=== PATIENT | female | born 1970 | race Caucasian/White ===

== ENCOUNTER 2024-02-22 09:59 | Emergency (ER) | payer BC, SELFPAY ==
[2024-02-22 10:02] VITALS: BP 144/94; PULSE 60; RESP 18; TEMP 36.6; O2SAT 97
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
--- NOTE | 2024-02-22 10:15 | DI.CT_ITS ---
Exam(s) CT CERVICAL SPINE WO EXAM: CT CERVICAL SPINE WO CLINICAL HISTORY: C 7 midline tenderness after fall w head strike. TECHNIQUE: Imaging Protocol: Axial computed tomography images with coronal and sagittal reformatted images were created and reviewed COMPARISON: No exams were available for comparison FINDINGS: Bones: There depression seen in the superior endplates at T1 and T2. There is a question of disrupti on of the cortex in each of these cases and acute fracture should be considered. There is no involve ment of the pedicles or posterior elements. There is no associated soft tissue abnormality. There i s mild reversal of the normal cervical lordosis. 2 mm anterolisthesis of C3 on C4 and C4 and C5 are noted. There is disc space narrowing at C5-C6 with osteophytes seen at the endplates. These finding s are likely chronic. Soft Tissues: Unremarkable. Lung Apices: Clear. IMPRESSION: Depressions involving the superior endplates of T1 and T2. There is a question of disruption of the cortex in each of these cases and an acute fracture should be considered. Noncontrast MRI is recomme nded for further evaluation. RADIATION DOSE DELIVERED: 332.24mGy.cm Total DLP 332.24mGy.cm Total DLP DATA REPOSITORY: All CT scans at this facility are submitted to the National Radiology Data Registry (NRDR) Dose Index Registry (DIR) with the [employer] (ACR). RADIATION OPTIMIZATION: All CT scans at this facility use at least one of these dose optimization te chniques: automated exposure control; mA and/or kV adjustment per patient size (includes targeted exa ms where dose is matched to clinical indication); or iterative reconstruction.
[2024-02-22 11:27] VITALS: BP 129/83; PULSE 55; O2SAT 99
[2024-02-22 13:24] VITALS: BP 125/77; PULSE 58; RESP 16; O2SAT 100
--- NOTE | 2024-02-22 13:45 | DI.MRI_ITS ---
Exam(s) MR THORACIC SPINE WO EXAM: MR THORACIC SPINE WO CLINICAL HISTORY: evaluate for fracture TECHNIQUE: Multiplanar multisequence MRI of the thoracic spine was performed without intravenous con trast. COMPARISON: CT CT CERVICAL SPINE WO from 02/22/2024 FINDINGS: OSSEOUS: There are Schmorl's node invagination in the superior endplate of T1, towards the anterior a spect and there is some marrow edema at this level as well as more posteriorly in the upper vertebra at this level where there is also mild height loss. There is no retropulsion of posterior cortex. T here is also small Schmorl's node invagination superior endplate of T2 vertebral body but without bon e edema on STIR images. No disc protrusion at this level. At the T3 level there is mild indentation of the superior endplate subjacent marrow edema consistent with mild compression fracture, proximally 10 percent. No significant posterior cortex retropulsion nor canal stenosis at this level. There is no acute signal in the vertebral bodies below this level although there is mild height loss at superior endplate of T9 noted and mild retropulsion of this sup erior posterior cortex, these findings consistent with remote fracture. SIGNIFICANT INDIVIDUAL LEVEL FINDINGS: There is a significant posterior disc herniation evident at C6-7 level. This subligamentous disc pro trusion extends posteriorly 3 mm and is approximately 12 mm wide. It effaces the anterior aspect of the thecal sac at this level and contacts the anterior aspect of the spinal cord. Resulting AP measu rement of the canal at this level is 8 mm. The disc protrusion at this level does not extend into th e exiting neural foramina which are patent. There is also no significant foraminal narrowing through out the thoracic spinal column. THORACIC SPINAL CORD: There is no abnormal signal in the cervical spinal cord and no evidence of foca l cord atrophy nor focal cord swelling. There is no evidence of syringomyelia nor significant spinal cord dysraphism. There is no evidence of mass at the conus medullaris. The position of the conus me dullaris is at normal T12-L1 level. There is no evidence of conus mass. PARASPINAL TISSUES: No significant masses nor fluid collections evident. IMPRESSION: 1. Mild superior endplate compression fractures at T1 and T3 levels with approximately 10 percent hei ght loss. There is no significant posterior cortex retropulsion at these levels 2. There is also some mild increased signal in the superior aspect of C7, without height loss of this vertebral body. This may be related to Modic type 1 sub endplate marrow edema changes as there is a significant central posterior subligamentous disc herniation at C6-7 level, as described above. 3. Other findings as above. If clinically indicated further cervical spine MRI can be performed. Findings called by myself to ER provider 02/22/2024 at 4:30 p.m. DATA REPOSITORY:
[2024-02-22 16:18] VITALS: BP 147/87; PULSE 67; RESP 18; O2SAT 97
--- NOTE | 2024-02-22 16:45 | W.EDPROG ---
Date of service: 02/22/24 Time of Service: 16:46 Medical Decision Making This dictation utilizes [id number] dictation software and may contain unedited grammatical errors. Patient seen in signout from Laisha Sánchez NP, pending MRI of the thoracic spine for some questionable T1 and T2 compression fractures seen on CT of the cervical spine from a fall 4 days ago, patient has been ambulating around his has pain, no signs of neurovascular compromise. Patients' medical history: States old back or neck fracture not sure which vertebrae. Family and social history: Noncontributory. Pertinent exam findings / vital signs include tenderness at the midline upper thoracic and lower cervical spine, neurovascular intact in bilateral upper extremities. Differential / pathologies of concern include compression fractures, disc herniation, unlikely cord syndrome. Diagnostic studies of: -MRI thoracic spine is pending-there shows a C6/7 disc herniation and a T1 and T3 minor compression fractures. Interventions of: -Given an [place] brace and referred to care management for [place] [facility] ED Course/Assessment/Plan: 54-year-old female presents with a fall 4 days ago on the ice, striking the back of her neck, has pain in this area, MRI reveals a 3 mm disc herniation without cord compression, shows a T1 and T3 minor less than 10% compression fracture, recommend the patient use the [place] brace for comfort as needed, Tylenol and ibuprofen as needed, ice to the areas of pain and follow-up with the referral to [facility] [place], strict return criteria for any signs of neurovascular compromise. Findings not consistent with surgical compression fractures, need for discectomy or emergent neurosurgery consult, neurovascular compromise. Disposition of herniation of intervertebral disc at C6-C7 level, compression of thoracic vertebra. Patient verbalized understanding of the plan and return to ED criteria and engaged in shared decision making. Medical Records Medical records reviewed: Yes I reviewed the patient's medical records. Imaging Data Radiologic Study: Attestation: I personally reviewed and interpreted this imaging study as follows: Imaging: CT Scan Radiologist's impression: EXAM: CT CERVICAL SPINE WO CLINICAL HISTORY: C 7 midline tenderness after fall w head strike. TECHNIQUE: Imaging Protocol: Axial computed tomography images with coronal and sagittal reformatted images were created and reviewed COMPARISON: No exams were available for comparison FINDINGS: Bones: There depression seen in the superior endplates at T1 and T2. There is a question of disruption of the cortex in each of these cases and acute fracture should be considered. There is no involvement of the pedicles or posterior elements. There is no associated soft tissue abnormality. There is mild reversal of the normal cervical lordosis. 2 mm anterolisthesis of C3 on C4 and C4 and C5 are noted. There is disc space narrowing at C5-C6 with osteophytes seen at the endplates. These findings are likely chronic. Soft Tissues: Unremarkable. Lung Apices: Clear. IMPRESSION: Depressions involving the superior endplates of T1 and T2. There is a question of disruption of the cortex in each of these cases and an acute fracture should be considered. Noncontrast MRI is recommended for further evaluation. Radiologic Study #2: Attestation: I personally reviewed and interpreted this imaging study as follows: Imaging: MRI Radiologist's impression: EXAM: MR THORACIC SPINE WO CLINICAL HISTORY: evaluate for fracture TECHNIQUE: Multiplanar multisequence MRI of the thoracic spine was performed without intravenous contrast. COMPARISON: CT CT CERVICAL SPINE WO from 02/22/2024 FINDINGS: OSSEOUS: There are Schmorl's node invagination in the superior endplate of T1, towards the anterior aspect and there is some marrow edema at this level as well as more posteriorly in the upper vertebra at this level where there is also mild height loss. There is no retropulsion of posterior cortex. There is also small Schmorl's node invagination superior endplate of T2 vertebral body but without bone edema on STIR images. No disc protrusion at this level. At the T3 level there is mild indentation of the superior endplate subjacent marrow edema consistent with mild compression fracture, proximally 10 percent. No significant posterior cortex retropulsion nor canal stenosis at this level. There is no acute signal in the vertebral bodies below this level although there is mild height loss at superior endplate of T9 noted and mild retropulsion of this superior posterior cortex, these findings consistent with remote fracture. SIGNIFICANT INDIVIDUAL LEVEL FINDINGS: There is a significant posterior disc herniation evident at C6-7 level. This subligamentous disc protrusion extends posteriorly 3 mm and is approximately 12 mm wide. It effaces the anterior aspect of the thecal sac at this level and contacts the anterior aspect of the spinal cord. Resulting AP measurement of the canal at this level is 8 mm. The disc protrusion at this level does not extend into the exiting neural foramina which are patent. There is also no significant foraminal narrowing throughout the thoracic spinal column. THORACIC SPINAL CORD: There is no abnormal signal in the cervical spinal cord and no evidence of focal cord atrophy nor focal cord swelling. There is no evidence of syringomyelia nor significant spinal cord dysraphism. There is no evidence of mass at the conus medullaris. The position of the conus medullaris is at normal T12-L1 level. There is no evidence of conus mass. PARASPINAL TISSUES: No significant masses nor fluid collections evident. IMPRESSION: 1. Mild superior endplate compression fractures at T1 and T3 levels with approximately 10 percent height loss. There is no significant posterior cortex retropulsion at these levels 2. There is also some mild increased signal in the superior aspect of C7, without height loss of this vertebral body. This may be related to Modic type 1 sub endplate marrow edema changes as there is a significant central posterior subligamentous disc herniation at C6-7 level, as described above. 3. Other findings as above. If clinically indicated further cervical spine MRI can be performed. Findings called by myself to ER provider 02/22/2024 at 4:30 p.m. Quality:[place] Health Related Social Needs: No Data to Display Discharge Plan Disposition Patient Disposition: Home Condition: Stable Discharge Details Clinical Impression: Compression fracture of thoracic vertebra, Herniation of intervertebral disc at C6-C7 level Primary Care Provider: Kalyn,Local ED Provider: Esteban Teajda Home Meds and New Rx's Prescriptions: No Action No Known Home Meds Discharge Instructions Instructions: Herniated disc, Vertebral Compression Fracture ED Additional Instructions: You were seen in the emergency department for the very minor compression fractures at T1 and T3 from your fall 4 days ago. He also have a significant disc herniation at C6/C7. You should [place] with [facility] [place] for long-term management of these injuries. We do not have orthospine at this hospital. I am sending you home with a soft cervical neck collar, you may need to seek specialty evaluation for continued pain, strict return criteria to emergency department for any signs of neurovascular compromise in the upper or lower extremities, numbness to the genitals, changes in bowel and stool habits. Discharge Data Discharge Date/Time-TO BE ENTERED AT DEPARTURE: 02/22/24 17:42
== END 2024-02-22 17:42 | disposition home or self-care (01) ==
PROVIDERS: Emergency Provider Physician Assistant
DX: S22.018A Other fracture of first thoracic vertebra, initial encounter for closed fracture (principal); S22.038A Other fracture of third thoracic vertebra, initial encounter for closed fracture; M50.223 Other cervical disc displacement at C6-C7 level; W19.XXXA Unspecified fall, initial encounter
CPT/HCPCS: 00123; 99284; 72125; 72146; 99283

== ENCOUNTER 2024-07-15 16:14 | Outpatient (REF) | payer BC, SELFPAY ==
[2024-07-15 21:50] LABS: Abs Immature Grans 0.02 10^3/uL (0.0-0.06); Absolute Basophil Count 0.02 10^3/uL (0.0-0.2); Absolute Eosinophil Count 0.07 10^3/uL (0.0-0.7); Absolute Lymphocyte Count 0.76 10^3/uL (1.2-3.4); Absolute Monocyte Count 0.41 10^3/uL (0.1-0.8); Absolute Neutrophil Count 3.38 10^3/uL (1.2-6.7); Basophils % 0.4 %; Eosinophils % 1.5 %; HCT 39.6 % (36.0-46.0); HGB 13.2 g/dL (11.2-15.7); Immature Grans % 0.4 %; Lymphocytes % 16.3 %; MCHC 33.3 % (32.0-36.0); MCV 96 fL (80-95); MPV 10.6 fL (8.0-11.0); Monocytes % 8.8 %; Neutrophils % 72.6 %; Platelet Count 247 10^3/uL (130-400); RBC 4.12 10^6/uL (3.93-5.22); RDW 12.9 % (11.7-14.6); RDW-SD 45.7 fL; WBC 4.66 10^3/uL (4.4-10.8)
[2024-07-15 22:08] LABS: ALT 21 U/L (14-59); AST 20 U/L (15-37); Albumin 4.2 g/dL (3.4-5.0); Alkaline Phosphatase 88 U/L (46-116); Anion Gap 8.6 mmol/L (3-11); BUN 9 mg/dL (7-18); Bilirubin, Total 0.9 mg/dL (0.2-1.0); CO2 26.4 mmol/L (21.0-32.0); CREATININE 0.7 mg/dL (0.55-1.02); Calcium 9.2 mg/dL (8.5-10.1); Calculated LDL 109 mg/dL (<100); Chloride 102 mmol/L (98-107); Cholesterol 215 mg/dL (<200); Estimated GFR 101.44 (mL/min/1.73m2); Glucose 100 mg/dL (74-106); HDL Cholesterol 93 mg/dL (>or=50); Hemoglobin A1C 5.6 % (<5.7); Potassium 4.2 mmol/L (3.5-5.1); Sodium 137 mmol/L (136-145); Total Protein 7.2 g/dL (6.4-8.2); Triglyceride 69 mg/dL (<150)
== END 2024-07-15 16:15 | disposition home or self-care (01) ==
LOC: NCHCN 16:14
PROVIDERS: PCP Student in an Organized Health Care Education/Training Program; Visit Provider Student in an Organized Health Care Education/Training Program
DX: Z13.220 Encounter for screening for lipoid disorders (principal); R07.89 Other chest pain; Z13.1 Encounter for screening for diabetes mellitus
CPT/HCPCS: 80053; 80061; 83036; 85025

== ENCOUNTER 2024-07-16 01:15 | Outpatient (CLI) | payer BC, SELFPAY ==
--- NOTE | 2024-07-16 | DI.RAD_ITS ---
Exam(s) XR CHEST 2V PA LATERAL EXAM: XR CHEST 2V PA LATERAL CLINICAL HISTORY: Lt chest wall pain, EKG normal, ongoing for mos, pt believes onset after TECHNIQUE: 2D digital imaging was performed of the chest. Two images were obtained. PA and lateral views were obtained. COMPARISON: No exams were available for comparison FINDINGS: MEDIASTINUM: Normal. HEART: Normal. PULMONARY VASCULATURE: Normal. LUNGS: Clear. PLEURAL SPACE: No pleural effusion or pneumothorax. BONE:Within normal limits for the patient's age. Chronic appearing compression deformities are seen of T12 and T10. OTHER FINDINGS:Normal. IMPRESSION: No acute pulmonary findings. DATA REPOSITORY: RADIATION DOSE DELIVERED:
== END 2024-07-16 01:35 ==
LOC: DI 01:15
PROVIDERS: PCP Student in an Organized Health Care Education/Training Program; Visit Provider Student in an Organized Health Care Education/Training Program
DX: R07.89 Other chest pain (principal)
CPT/HCPCS: 71046

== ENCOUNTER 2024-08-27 03:13 | Outpatient (CLI) | payer BC, SELFPAY ==
--- NOTE | 2024-08-27 | DI.MAMMO_ITS ---
Exam(s) MAMMO SCREENING EXAM: MAMMO SCREENING CLINICAL HISTORY: SCREENING,Z12.31 TECHNIQUE: Bilateral full field digital CC and MLO mammographic images were obtained with 3D tomosynthesis and utilizing computer aided detection (CAD). COMPARISON: Comparison is made with prior examinations. FINDINGS: Masses/Architectural Distortion: No suspicious masses or areas of architectural distortion are present. There are stable nodule seen in the upper outer quadrant of the right breast. No new nodules are present. Microcalcifications: No suspicious pleomorphic-type are seen. Skin Thickening/Nipple Retraction: None. IMPRESSION: 1. No significant interval change with no specific features of malignancy noted. 2. Unless there is more urgent need, screening mammography is recommended, as per [employer] guidelines. BI-RADS Category 2 - Benign Findings Breast Density - Category B - There are scattered areas of fibroglandular density. Breast density Category C or D implies that the patient has dense breast tissue. Dense breast tissue can make it harder to find cancer on a mammogram. Dense breast tissue is also associated with an increased risk of breast cancer. This information about the result of the mammogram report was provided to the patient to raise their awareness. Use this report when you speak with the patient about their risks for breast cancer, which includes their family history. At that time, you may recommend additional screening tests (Ultrasound or MRI) as these tests may add significant information. A negative radiographic report should not delay biopsy if a dominant or clinically suspicious mass is present. Up to ten percent of cancers are not identified on mammography. A negative report may reinforce clinical impression. Adenosis and dense breasts may obscure an underlying neoplasm. False positive reports average 6 to 10%. Patient will receive a letter notifying them of these results.
== END 2024-08-27 03:33 ==
LOC: DI 03:13
PROVIDERS: PCP Student in an Organized Health Care Education/Training Program; Visit Provider Student in an Organized Health Care Education/Training Program
DX: Z12.31 Encounter for screening mammogram for malignant neoplasm of breast (principal); R92.323 Mammographic fibroglandular density, bilateral breasts
CPT/HCPCS: 77063; 77067

== ENCOUNTER 2024-09-19 14:55 | Outpatient (REF) | payer BC, SELFPAY ==
--- NOTE | 2024-09-19 14:45 | PAPFT_PTH ---
PATIENT: Nicole Aquino LOC: [facility] U#:[id number] AGE/SX: 54/F ROOM: RE09/19/[address]: Keli Gaytan DO : 1970 BED: DIS: 09/19/2024 SPEC #: [id number] RECD: 09/19/24 17:50 STATUS: TIFFANIE REQ #: [id number] KAIA: 09/19/24 14:[address]: Keli Gaytan DEPT: [facility] Cytology RECD BY: Fina Castillo ENTERED: 09/19/24 17:51 SP TYPE: PAPFT OTHR DR: Edmond Snell Tissues: 1 - CX/ENDOCX FOR PAP SMEARS Procedures: PAP THIN PREP/[facility] Screening HPV DNA PROBE Comments: [id number] (HPV 16 & 18/45)
== END 2024-09-19 14:56 | disposition home or self-care (01) ==
LOC: LBN 14:55
PROVIDERS: PCP Student in an Organized Health Care Education/Training Program; Visit Provider Obstetrics & Gynecology
DX: Z12.4 Encounter for screening for malignant neoplasm of cervix (principal)
CPT/HCPCS: 88142; 87624

== ENCOUNTER 2024-10-21 16:21 | Outpatient (REF) | payer BC, SELFPAY ==
[2024-10-21 15:57] LABS: Abs Immature Grans 0.02 10^3/uL (0.0-0.06); HCT 39.3 % (36.0-46.0); HGB 13.0 g/dL (11.2-15.7); Immature Grans % 0.3 %; MCH 32.0 pg (27.0-33.0); MCHC 33.1 % (32.0-36.0); MCV 97 fL (80-95); MPV 10.7 fL (8.0-11.0); Platelet Count 238 10^3/uL (130-400); RBC 4.06 10^6/uL (3.93-5.22); RDW 13.2 % (11.7-14.6); RDW-SD 47.7 fL; WBC 6.39 10^3/uL (4.4-10.8)
== END 2024-10-21 16:22 | disposition home or self-care (01) ==
LOC: NCHCN 16:21
PROVIDERS: PCP Student in an Organized Health Care Education/Training Program; Visit Provider Student in an Organized Health Care Education/Training Program
DX: D72.810 Lymphocytopenia (principal)
CPT/HCPCS: 85025